=== PATIENT | female | born 1975 | race Caucasian/White ===

== ENCOUNTER 2019-09-24 11:49 | Emergency (ER) | payer MEDICAID ==
[~2019-09-24] VITALS: Ht 160 cm; Wt 72.7 kg
[2019-09-24] MEDS ORDERED: LIDOcaine 1% 30ml preserv. free vial IJ STA (13:21)
[2019-09-24] MEDS ORDERED: BUPIVAcaine 0.5% W/EPI /PF 30ml vial IJ ONE (13:25)
[2019-09-24] MEDS ORDERED: fentaNYL/PF 50MCG/1 ML 2ML syringe IV ONE (13:25)
[2019-09-24] MEDS ORDERED: ondansetron/PF 4mg/2ml inj IV ONE (13:25)
--- NOTE | 2019-09-24 13:52 | NUR ---
consents began on pt for moderate sedation of left wrist. pt at a treatment facility and needs permission to be treated with narcotic pain medication. facility contacted and left message. awaiting to hear back before procedure can begin. tariq truong aware. pt aware.
--- NOTE | 2019-09-24 14:42 | NUR ---
facility director returned call. florencio potter talked with director about pt care.
[2019-09-24] MEDS ORDERED: MIDAZolam 5mg/ml 2ml vial IV ONE (15:45)
--- NOTE | 2019-09-24 16:43 | NUR ---
[facility]AL[facility] FROM [facility] CALLED FOR [facility]. AWAITING CALL BACK FROM [facility]. PT IS UNABLE TO FIND HER PERSONAL NUMBER IN HER PURSE.
--- NOTE | 2019-09-24 17:16 | NUR ---
[facility] CONTACTED AND COMING FOR PT
[2019-09-24 18:12] VITALS: BP 109/58
[2019-10-01] MEDS ORDERED: FOLI0.4T14 PO (11:04)
[2019-10-01] MEDS ORDERED: SPIR50TA5 PO (11:04)
[2019-10-01] MEDS ORDERED: LEVO75TA PO (11:04)
[2019-10-01] MEDS ORDERED: PROP10TA10 PO (11:04)
[2019-10-01] MEDS ORDERED: PANT-47 PO (11:04)
[2019-10-01] MEDS ORDERED: MELO-100 PO (11:04)
== END 2019-09-24 18:21 | disposition home or self-care (01) ==
LOC: ER 11:49
DX: S52.612A Displaced fracture of left ulna styloid process, initial encounter for closed fracture (principal); S52.512A Displaced fracture of left radial styloid process, initial encounter for closed fracture; M25.572 Pain in left ankle and joints of left foot; R20.0 Anesthesia of skin; W01.0XXA Fall on same level from slipping, tripping and stumbling without subsequent striking against object, initial encounter; Y93.89 Activity, other specified; Y92.89 Other specified places as the place of occurrence of the external cause; Y99.8 Other external cause status
CPT/HCPCS: 25605; 73090; 73100; 73130; 96374; 96375; 99285; J2405; J3010; 29125

== ENCOUNTER 2019-10-02 10:06 | Day surgery (SDC) | payer MEDICAID ==
[2019-09-30 14:29] VITALS: BP 113/64
[~2019-10-02] VITALS: Ht 160 cm; Wt 72.9 kg
[2019-10-02] VITALS (10 sets, daily range): BP systolic 104–124; BP diastolic 45–64
[~2019-10-02 10:06] MED LIST: FOLI0.4T14 PO; LEVO75TA PO; MELO-100 PO; PANT-47 PO; PROP10TA10 PO; SPIR50TA5 PO; ceFAZolin 2gm in dextrose, iso 50 ML IV ONE; famotidine 20mg tablet PO ONE; ringers solution, lacted 1,000 ML IV SCH; vancomycin 1,500 MG in NS 300ml IV soln IV ONE
[2019-10-02 11:38] LABS: BASOPHILS % (AUTO) 0.7 % (0-1); EOSINOPHILS # (AUTO) 0.1 X10'3 (0-0.9); EOSINOPHILS % (AUTO) 2.6 % (0-6); LYMPHOCYTES # (AUTO) 1.7 X10'3 (1.1-4.8); LYMPHOCYTES % (AUTO) 33.5 % (21-51); MEAN CORPUSCULAR HEMOGLOBIN 31.4 PG (27.0-31.0); MEAN CORPUSCULAR HGB CONC 33.4 g/dL (33.0-36.5); MEAN PLATELET VOLUME 10.9 FL (7.4-10.4); MONOCYTES # (AUTO) 0.3 X10'3 (0-0.9); MONOCYTES % (AUTO) 5.4 % (2-12); NEUTROPHILS # (AUTO) 2.9 X10'3 (1.8-7.7); NEUTROPHILS % (AUTO) 57.8 % (42-75); PRE OP HEMATOCRIT 36.4 % (35.0-45.0); PRE OP HEMOGLOBIN 12.2 g/dL (12.0-16.0); RED BLOOD COUNT 3.87 X10'6 (4.20-5.60); RED CELL DISTRIBUTION WIDTH 16.1 % (11.5-14.5)
[2019-10-02] MEDS ORDERED: ACET-1025 PO (11:44)
[2019-10-02] MEDS ORDERED: OMEG-133 PO (11:44)
[2019-10-02] MEDS ORDERED: OMEG1CAP2 PO (11:44)
[2019-10-02 12:01] LABS: ALBUMIN 3.2 G/DL (3.4-5.0); ALBUMIN/GLOBULIN RATIO 0.8 (1.1-1.5); ALKALINE PHOSPHATASE 140 IU/L (46-116); BLOOD UREA NITROGEN 16 MG/DL (7-18); BUN/CREATININE RATIO 17.8 (6.6-38.0); CALCIUM 8.9 MG/DL (8.5-10.1); CHLORIDE 106 MMOL/L (99-107); PRE OP ALT 30 U/L (30-65); PRE OP ANION GAP 11 (8-16); PRE OP AST 40 U/L (10-37); PRE OP BILIRUB, TOTAL 2.1 MG/DL (0.0-1.0); PRE OP GLUCOSE 80 MG/DL (70-104); PRE OP POTASSIUM 4.9 MMOL/L (3.4-5.1); PRE OP SODIUM 137 MMOL/L (135-145); TOTAL CARBON DIOXIDE 20.4 MMOL/L (24-32); TOTAL PROTEIN 7.4 G/DL (6.4-8.2); eGFR 68 ML/MIN
[2019-10-02 12:05] LABS: PRE OP PLATELET COUNT 76 X10'3 (140-440)
[2019-10-02 12:09] LABS: LARGE PLATELETS FEW; PLATELET ESTIMATE DECREASED
[2019-10-02 12:49] LABS: HCG SERUM QL NEGATIVE
[2019-10-02 12:51] LABS: PRE OP INR 1.3 INR; PRE OP PROTIME 12.9 SECONDS (9.0-12.0)
[2019-10-02] MEDS ORDERED: fentaNYL/PF 50MCG/1 ML 2ML syringe ONE (13:02)
[2019-10-02] MEDS ORDERED: MIDAZolam 5mg/5ml vial ONE (13:02)
[2019-10-02] MEDS ORDERED: ROPIVAcaine 0.5% (5mg/ml) 30ml vial ONE (13:04)
[2019-10-02] MEDS ORDERED: sevoflurane 250ml liquid IH ONE (13:15)
[2019-10-02] MEDS ORDERED: LIDOcaine 1%/PF 5ML 10 MG/ML VIAL ONE (13:15)
[2019-10-02] MEDS ORDERED: propofol 10mg/ml 20ml vial IV ONE (13:15)
[2019-10-02] MEDS ORDERED: ringers solution, lacted 1,000 ML IV SCH (13:59)
[2019-10-02] MEDS ORDERED: morphine 2 MG/ML inj. syringe IV PRN (14:00)
[2019-10-02] MEDS ORDERED: ondansetron/PF 4mg/2ml inj IV PRN (14:00)
[2019-10-02] MEDS ORDERED: proCHLORperazine 10 MG/2 ml inj IV PRN (14:00)
[2019-10-02] MEDS ORDERED: meperidine/PF 25mg/ml syringe IV PRN ×3 (14:00)
[2019-10-02] MEDS ORDERED: morphine 4 MG/ML inj SYRINge IV PRN (14:00)
--- NOTE | 2019-10-02 14:29 | NUR ---
Received from OR via [facility], accompanied by Anesthesiologist DR FAY and report given by Anesthesiolgist. VSS. LEFT FINGERS WARM WITH GOOD VALUE STREAM LEADER. ABLE TO WIGGLE LEFT FINGERS. LEFT WRIST/HAND SPLINT/IJEOMA WRAPS CDI, ELEVATED ON A PILLOW, AND ICE APPLIED TO AREA. IV RIGHT FA #20 PATENT. AWAKENS EASILY. NO COMPLAINTS Addendum: 10/02/19 at 1442 by Vero James RN Amended: Links added.
--- NOTE | 2019-10-02 16:09 | NUR ---
VSS. LEFT WRIST/HAND SPLINT AND IJEOMA WRAPS CDI. BLOCK STILL AFFECTIVE. LEFT FINGERS PINK WITH GOOD CORE MACHINE TENDER. SLING APPLIED TO LUE. PT STATES READINESS TO DC HOME. IV DC'D WITH CANNULA INTACT AND PRESSURE DSG APPLIES. DC INSTRUCTIONS REVIEWED WITH PT AND RUBBER CALENDER HELPER WHO VERBALIZED UNDERSTANDING. DC HOME WITH ALL PERSONAL BELONGINGS VIA WC TO PVT AUTO WITH FRIEND TO RECEIVE PT. Addendum: 10/02/19 at 1644 by Vero James RN Amended: Links added.
--- NOTE | 2019-10-02 16:09 | NUR ---
PLEASE REFER TO THE 1409 DOCUMENTATION FOR DC ASSESSMENT AND CHARTING- NURSING ERROR IN ENTERING TIMES. ACTUAL DC ASSESSMENT AND TIME OF CHARTING OCCURRED AT 1609.
== END 2019-10-02 16:09 | disposition home or self-care (01) ==
LOC: PRE-OP 10:06
PROVIDERS: ATTEND Orthopaedic Surgery
DX: S52.552A Other extraarticular fracture of lower end of left radius, initial encounter for closed fracture (principal); I10 Essential (primary) hypertension; E03.9 Hypothyroidism, unspecified; K21.9 Gastro-esophageal reflux disease without esophagitis; K74.60 Unspecified cirrhosis of liver; Z79.899 Other long term (current) drug therapy; Z87.891 Personal history of nicotine dependence; Z79.01 Long term (current) use of anticoagulants; G89.18 Other acute postprocedural pain; W19.XXXA Unspecified fall, initial encounter; Y93.89 Activity, other specified; Y92.89 Other specified places as the place of occurrence of the external cause; Y99.8 Other external cause status
CPT/HCPCS: 25607; 36415; 64417; 80053; 82948; 84703; 85025; 85610; 85730; A6222; C1713; J2250; J2704; J3010; J3370; J7040; J7120; A4618; A6449; A7000; J2795